=== PATIENT | female | born 1970 ===

== ENCOUNTER 2018-09-18 07:56 | Emergency (ER) | payer OTHER ==
[2018-09-18 08:03] VITALS: BMI 25.9
[2018-09-18 08:08] VITALS: RESP 18
[2018-09-18] MEDS ORDERED: Sodium Chloride 0.9% 1,000 ML IV ONE (08:13)
[2018-09-18 08:38] LABS: BASO # 0.1 K/uL (0.0-0.2); BASO % 0.9 % (0.0-2.0); EOS # 0.1 K/uL (0.0-0.7); HEMOGLOBIN 13.6 g/dL (11.0-16.0); LYMPH % 28.3 % (20.0-40.0); MEAN CELL VOLUME 85.4 fL (81.0-99.0); MEAN CORPUSCULAR HEMOGLOBIN 28.4 pg (27.0-31.0); MEAN CORPUSCULAR HGB CONC 33.2 g/dL (33.0-37.0); MEAN PLATELET VOLUME 7.9 fL (7.2-11.7); MONO # 0.6 K/uL (0.0-0.8); MONO % 7.8 % (0.0-10.0); NEUT # 4.3 K/uL (1.8-7.0); NRBC % 0.1 % (0.0-2.0); RBC 4.79 Mil/uL (3.80-5.20); RED CELL DISTRIBUTION WIDTH 14.1 % (11.5-14.5); WHITE BLOOD COUNT 7.1 K/uL (4.8-10.8)
[2018-09-18 08:39] LABS: HCG,QUALITATIVE URINE NEGATIVE (NEGATIVE)
[2018-09-18] MEDS ORDERED: Sodium Chloride 0.9% 1,000 ML ONE (08:40)
[2018-09-18 08:46] LABS: SQUAMOUS EPITHIAL 5 /hpf (0-5); URINE BACTERIA MANY (<OCC); URINE BILIRUBIN NEGATIVE (NEGATIVE); URINE BLOOD 2+ (NEGATIVE); URINE CLARITY Hazy (Clear); URINE COLOR Yellow (YELLOW); URINE GLUCOSE (UA) NORMAL (Normal); URINE LEUKOCYTE ESTERASE NEG Leu/uL (Negative); URINE PROTEIN NEGATIVE (NEGATIVE); URINE UROBILINOGEN NORMAL mg/dL (0.2-1.0)
[2018-09-18 08:52] LABS: ALB/GLOB RATIO 1.3 (1.0-2.1); ALBUMIN 4.1 g/dL (3.5-5.0); ALT/SGPT 46 U/L (9-52); AST/SGOT 35 U/L (14-36); BLOOD UREA NITROGEN 12 mg/dL (7-17); CALCIUM 10.4 mg/dl (8.6-10.4); GFR NON-AFRICAN AMERICAN > 60; LIPASE 60 U/L (23-300)
--- NOTE | 2018-09-18 09:19 | C.PDOC ---
History Of Present Illness 48 year old female presents to the ED for evaluation of lower abdominal pain for the past three days. She also reports nausea and intermittent vomiting for the past two weeks. Patient states she took a home test, which was positive. Patient states she underwent a partial hysterectomy, but afterward was positive for an ectopic . Patient denies fever, chills, and back pain at this time. Chief Complaint (Nursing): Abdominal Pain History Per: Patient History/Exam Limitations: no limitations Onset/Duration Of Symptoms: Days, Intermittent Episodes Current Symptoms Are (Timing): Still Present Location Of Pain/Discomfort: Other (lower abdomen ) Radiation Of Pain To:: None Quality Of Discomfort: "Pain" Associated Symptoms: Nausea, Vomiting. denies: Fever, Chills Additional History Per: Patient Abnormal Vaginal Bleeding: No Past Medical History Reviewed: Historical Data, Nursing Documentation, Vital Signs Vital Signs: Last Vital Signs Temp 98.8 F 09/18/18 08:03 Pulse 63 09/18/18 08:03 Resp 18 09/18/18 08:03 BP 164/101 H 09/18/18 08:03 Pulse Ox 98 09/18/18 08:03 - Medical History PMH: No Chronic Diseases Surgical History: No Surg Hx - [facility] Procedures OTH LYSIS-PERITONEAL ADHES (07/13/14) SMALL BOWEL INCISION NEC (07/13/14) Family History: States: Unknown Family Hx - Social History Hx Tobacco Use: Yes Hx Alcohol Use: Yes Hx Substance Use: No - Immunization History Hx Influenza Vaccination: No Hx Pneumococcal Vaccination: No Review Of Systems Constitutional: Negative for: Fever, Chills Gastrointestinal: Positive for: Nausea, Vomiting, Abdominal Pain (lower ) Musculoskeletal: Negative for: Back Pain Physical Exam - Physical Exam Appears: Non-toxic, No Acute Distress Skin: Normal Color, Warm, Dry Head: Atraumatic, Normacephalic Eye(s): bilateral: Normal Inspection Oral Mucosa: Moist Neck: Supple Chest: Symmetrical, No Deformity, No Tenderness Cardiovascular: Rhythm Regular, No Murmur Respiratory: Normal Breath Sounds, No Rales, No Rhonchi, No Wheezing Gastrointestinal/Abdominal: Soft, Tenderness (right lower quadrant ), No Guarding, No Rebound, Other (abdomen is firm, likely of post-operative etiology (patient is s/p abdominoplasty)) Extremity: Normal ROM, Capillary Refill (less than 2 seconds ) Neurological/Psych: Oriented x3, Normal Speech, Normal Cognition ED Course And Treatment - Laboratory Results Result Diagrams: 09/18/18 08:28 09/18/18 08:28 O2 Sat by Pulse Oximetry: 98 (on RA) Pulse Ox Interpretation: Normal - CT Scan/US CT abdomen/pelvis Other Rad Studies (CT/US): Read By Radiologist, Radiology Report Reviewed CT/US Interpretation: Accession No. : [id number]. Patient Name / ID : DEMARCO KNOTT / [id number]. Exam Date : 09/18/2018 11:40:09 ( Approved ). Stud y Comment : Sex / Age : F / 48Y. Creator : Mary Madera. Dictator : Ernie Witt MD. Container Washer Machine : Business Office Director : Ernie Witt MD. Approver2 : Report Date : 09/18/2018 11:55:47. My Comment : . Date of service: 09/18/2018. PROCEDURE: CT Abdomen and Pelvis with contrast. HISTORY: RLQ pain/Nausea/vomiting. COMPARISON: CT scan of the abdomen pelvis dated 08/14/2015. TECHNIQUE: Contrast dose: 100 mL Visipaque 320. Radiation dose: Total exam DLP = 731.51 mGy-cm. This CT exam was per formed using one or more of the following dose reduction techniques: Automated exposure control, adjustment of the mA and/or kV according to patient size, and/or use of iterative reconstruction technique. FINDINGS: LOWER THORAX: Unremarkable. LIVER: Hepatic steatosis. 9 mm too small to characterize left hepatic lobe hypodensity. No ductal dilatation. GALLBLADDER AND BILE DUCTS: Unremarkable. PANCREAS: Unremarkable. No gross lesion or ductal dilatation. SPLEEN: Unremarkable. ADRENALS: Unremarkable. No mass. KIDNEYS AND URETERS: Duplicated right renal collecting system. No hydronephrosis. No solid mass. VASCULATURE: Unremarkable. No aortic aneurysm. No aortic atherosclerotic calcification or mural plaque present. BOWEL: Unremarkable. No obstruction. No gross mural thickening. APPENDIX: Normal appendix. PERITONEUM: Postsurgical changes in the ventral abdominal wall. No free fluid. No free air. LYMPH NODES: Unremarkable. No enlarged lymph nodes. BLADDER: Unremarkable. REPRODUCTIVE: Bilateral ovarian cysts/follicles. Prior hysterectomy. Similar appearance of cervical prominence. BONES: No acute fracture. OTHER FINDINGS: None. IMPRESSION: No acute abdominal pelvic pathology. Stable findings as above. Progress Note: Bloodwork and urinalysis ordered and reviewed. Pepcid IVP, Zofran IVP, Toradol IVP and IV Fluids given. Patient's urine HCG is negative. Patient's beta count is <2.39. CT A/P ordered and w/o acute finding. UA is consistant with UTI. Rx for macrobid was given. patient was giving copies of all her lab and CT results. Patient sts she will f/u with her OBGYN. Disposition - Disposition Disposition: HOME/ ROUTINE Disposition Time: 13:26 Condition: STABLE Additional Instructions: FRollow up with your PMD and OBGYN within 1-2 days. Return to ED if feel worse. Prescriptions: Nitrofurantoin Macrocrystals [Macrobid] 1 cap PO BID #10 cap Ondansetron ODT [Zofran ODT] 4 mg PO .Q4-6H PRN #20 odt PRN Reason: Nausea/Vomiting Instructions: Urinary Tract Infections in Adults Forms: [facility] (Lao) - Clinical Impression Clinical Impression: Abdominal pain, UTI (urinary tract infection) - PA / ROLL SCALE MAN / Resident Statement MD/DO has reviewed & agrees with the documentation as recorded. - Scribe Statement The provider has reviewed the documentation as recorded by the Scribe (Elizabeth Murcia) All medical record entries made by the Scribe were at my direction and personally dictated by me. I have reviewed the chart and agree that the record accurately reflects my personal performance of the history, physical exam, medical decision making, and the department course for this patient. I have also personally directed, reviewed, and agree with the discharge instructions and d isposition.
[2018-09-18] MEDS ORDERED: Iohexol 240 (50 ml) PO STA (09:22)
[2018-09-18] MEDS ORDERED: Iohexol 240 (50 ml) ONE (10:02)
[2018-09-18] MEDS ORDERED: Iodixanol 320 MG/ML 100 ML BOTTLE IV ONE (12:02)
--- NOTE | 2018-09-18 12:08 | CT ---
Date of service: 09/18/2018 PROCEDURE: CT Abdomen and Pelvis with contrast HISTORY: RLQ pain/Nausea/vomiting COMPARISON: CT scan of the abdomen pelvis dated 08/14/2015 TECHNIQUE: Contrast dose: 100 mL Visipaque 320 Radiation dose: Total exam DLP = 731.51 mGy-cm. This CT exam was performed using one or more of the following dose reduction techniques: Automated exposure control, adjustment of the mA and/or kV according to patient size, and/or use of iterative reconstruction technique. FINDINGS: LOWER THORAX: Unremarkable. LIVER: Hepatic steatosis. 9 mm too small to characterize left hepatic lobe hypodensity. No ductal dilatation. GALLBLADDER AND BILE DUCTS: Unremarkable. PANCREAS: Unremarkable. No gross lesion or ductal dilatation. SPLEEN: Unremarkable. ADRENALS: Unremarkable. No mass. KIDNEYS AND URETERS: Duplicated right renal collecting system. No hydronephrosis. No solid mass. VASCULATURE: Unremarkable. No aortic aneurysm. No aortic atherosclerotic calcification or mural plaque present. BOWEL: Unremarkable. No obstruction. No gross mural thickening. APPENDIX: Normal appendix. PERITONEUM: Postsurgical changes in the ventral abdominal wall. No free fluid. No free air. LYMPH NODES: Unremarkable. No enlarged lymph nodes. BLADDER: Unremarkable. REPRODUCTIVE: Bilateral ovarian cysts/follicles. Prior hysterectomy. Similar appearance of cervical prominence. BONES: No acute fracture. OTHER FINDINGS: None. IMPRESSION: No acute abdominal pelvic pathology. Stable findings as above.
[2018-09-18 12:45] VITALS: BP 162/88; PULSE 62; TEMP 98.4
[2018-09-18 12:49] VITALS: O2SAT 98
== END 2018-09-18 13:46 | disposition home or self-care (01) ==
LOC: C.ER 07:56
DX: N39.0 Urinary tract infection, site not specified (principal); R10.31 Right lower quadrant pain
CPT/HCPCS: 74177; 80053; 81001; 83690; 84702; 84703; 85025; 86850; 86900; 87040; 87086; 96374; 96375; 99284; J1885; J2405; J7030; Q9966; Q9967